=== PATIENT | male | born 1965 | race Two or more races ===

== ENCOUNTER 2024-04-04 18:40 | Emergency (ER) | payer MEDICAID, OTHER ==
[~2024-04-04] VITALS: Ht 188 cm; Wt 109.7 kg
[2024-04-04 19:10] VITALS: BP 110/66; PULSE 70; RESP 18; O2SAT 99
[2024-04-04 20:54] LABS: Urine Bacteria None Seen /hpf (None Seen)
[2024-04-04 21:49] LABS: Urine Blood Negative /uL (Negative); Urine Clarity Clear (Clear); Urine Color Yellow (Yellow); Urine Mucus FEW (None Seen); Urine Protein, UAD Negative (Negative); Urine Specific Gravity 1.022 (1.001-1.035); Urine Urobilinogen 4 mg/dL (Negative); Urine WBC <1 /hpf (0 - 3)
[2024-04-04] MEDS ORDERED: TAMS-35 PO (22:07)
== END 2024-04-04 22:16 | disposition home or self-care (01) ==
LOC: ER 18:44
DX: R39.11 Hesitancy of micturition (principal); Z79.899 Other long term (current) drug therapy
CPT/HCPCS: 81001